=== PATIENT | female | born 1935 | race Caucasian/White ===

== ENCOUNTER 2017-01-13 06:25 | Emergency (ER) | payer MEDICARE, OTHER ==
[~2017-01-13 06:25] MED LIST: ADVAIR 1001 DISK W/D IH; COUMADIN2 MG PO; COUMADIN3 MG; COUMADIN4 MG; DYAZIDE 37.5/251 CAP PO; FOSAMAX70 MG; KLOR-CON 1010 MEQ PO; LEVAQUIN750 MG PO; LIPITOR40 MG PO; MYCELEX10 MG MM; OS-CAL 500+D CA1 TAB PO; PROMETHAZINE/COD5 ML PO; TYLENOL325 MG PO; VERAPAMIL HCL120; VERAPAMIL HCL120 MG; VERAPAMIL HCL120 PO; VYTORIN 10/40 T1 TAB
[2017-01-13] MEDS ORDERED: METOPROLOL SUCC50 M1 PO (06:49)
[2017-01-13] MEDS ORDERED: COUMADIN4 M1 PO (06:51)
[2017-01-13] MEDS ORDERED: COUMADIN3 M1 PO (06:52)
[2017-01-13] MEDS ORDERED: VITAMIN B-6100 M1 PO (06:52)
[2017-01-13] MEDS ORDERED: POTASSIUM CHLO10 ME2 PO (06:53)
[2017-01-13] MEDS ORDERED: BENTYL10 M1 PO (06:53)
[2017-01-13] MEDS ORDERED: LIPITOR40 M1 PO (06:54)
[2017-01-13] MEDS ORDERED: MAXZIDE 37.5 M1 EAC1 PO (06:54)
[2017-01-13] MEDS ORDERED: FLECAINIDE ACE100 M1 PO (06:55)
[2017-01-13] MEDS ORDERED: NORCO 5-325 TA1 EACH PO (08:05)
[2017-03-14] MEDS ORDERED: PREVAGEN PO (15:23)
[2017-03-14] MEDS ORDERED: ALIGN4 M1 PO (15:24)
[2017-03-14] MEDS ORDERED: OS-CAL 500+D31 EAC1 PO (15:24)
[2017-03-14] MEDS ORDERED: TOPROL XL50 M1 PO (15:27)
== END 2017-01-13 09:05 ==
LOC: EDMED 06:25
DX: M54.5 Low back pain (principal); M79.605 Pain in left leg; M13.852 Other specified arthritis, left hip; M13.851 Other specified arthritis, right hip; I10 Essential (primary) hypertension; Z86.11 Personal history of tuberculosis; Z90.710 Acquired absence of both cervix and uterus; Z90.49 Acquired absence of other specified parts of digestive tract; Z79.01 Long term (current) use of anticoagulants; Z79.899 Other long term (current) drug therapy; W19.XXXA Unspecified fall, initial encounter

== ENCOUNTER 2017-01-19 04:33 | Observation (INO) | payer MEDICARE, OTHER ==
[~2017-01-19 04:33] MED LIST changes: +BENTYL10 M1 PO; +COUMADIN3 M1 PO; +COUMADIN4 M1 PO; +FLECAINIDE ACE100 M1 PO; +LIPITOR40 M1 PO; +MAXZIDE 37.5 M1 EAC1 PO; +METOPROLOL SUCC50 M1 PO; +NORCO 5-325 TA1 EACH PO; +POTASSIUM CHLO10 ME2 PO; +VITAMIN B-6100 M1 PO
[2017-01-19 05:21] LABS: BASO % 0.2 % (0-2); EOS % 0.8 % (0-7); EOSINOPHIL ABSOLUTE COUNT 0.1 tho/cmm (0.0-0.7); HCT-HEMATOCRIT 45.2 % (34.0-49.0); HGB-HEMOGLOBIN 15.6 gm/dl (12.0-15.5); IMMATURE GRANULOCYTES ABSOLUTE 0.02 tho/cmm (0-0.03); IMMATURE GRANULOCYTES PERCENT 0.2 % (0-0.3); LYMPH % 13.9 % (20-45); LYMPH ABSOLUTE COUNT 1.5 tho/cmm (0.8-4.5); MCH (MEAN CORPUSCULAR HGB) 31.6 pg (28.0-32.0); MCHC MEAN CORPUSCULAR HGB CONC 34.5 % (32.0-36.0); MCV (MEAN CELL VOLUME) 91.5 fl (82.0-96.0); MEAN PLATELET VOLUME 9.5 cmc (9.4-12.4); MONO % 9.3 % (0-12); NEUTROPHIL ABSOLUTE COUNT 8.4 tho/cmm (1.6-8.0); NEUTROPHIL-AUTOMATED 8.4 tho/cmm (1.6-8.0); NEUTROPHILS % 75.6 % (40-80); PLATELET COUNT 256 tho/cmm (150-450); RED BLOOD COUNT 4.94 mil/cmm (4.00-5.20); WHITE BLOOD COUNT 11.1 tho/cmm (4.0-10.0)
[2017-01-19 05:25] LABS: PROTHROMBIN TIME 23.6 SECONDS (9.0-13.6)
[2017-01-19 05:42] LABS: ANION GAP 15 mmol/L (0-20); BLOOD UREA NITROGEN 32 mg/dl (6-24); CARBON DIOXIDE-VENOUS 22 mmol/L (22-32); CHLORIDE 113 mmol/l (96-110); CREATININE 0.78 mg/dl (0.50-1.10); GLUCOSE 131 mg/dL (70-110); POTASSIUM 3.5 mmol/L (3.7-5.1); SODIUM 146 mmol/L (135-145); eGFR VALUE FOR BLACK 84 mL/Min
[2017-03-14] MEDS ORDERED: PREVAGEN PO (15:23)
[2017-03-14] MEDS ORDERED: ALIGN4 M1 PO (15:24)
[2017-03-14] MEDS ORDERED: OS-CAL 500+D31 EAC1 PO (15:24)
[2017-03-14] MEDS ORDERED: TOPROL XL50 M1 PO (15:27)
== END 2017-01-19 17:30 ==
LOC: EDMED 04:33 → EMR2 07:27 → CAR1 14:15
PROVIDERS: Emergency Medicine; ADMIT Internal Medicine Cardiovascular Disease
DX: I48.0 Paroxysmal atrial fibrillation (principal); E78.5 Hyperlipidemia, unspecified; E87.6 Hypokalemia; I34.0 Nonrheumatic mitral (valve) insufficiency; Z79.899 Other long term (current) drug therapy; Z79.01 Long term (current) use of anticoagulants; Z90.49 Acquired absence of other specified parts of digestive tract; Z98.41 Cataract extraction status, right eye; Z98.42 Cataract extraction status, left eye; Z90.710 Acquired absence of both cervix and uterus; Z98.890 Other specified postprocedural states
CPT/HCPCS: G0378; J7030

== ENCOUNTER 2017-03-18 09:28 | Inpatient (IN) | payer MEDICARE, OTHER ==
[~2017-03-18 09:28] MED LIST changes: +ALIGN4 M1 PO; +OS-CAL 500+D31 EAC1 PO; +PREVAGEN PO; +TOPROL XL50 M1 PO
[2017-03-18 12:02] LABS: BASO % 0.1 % (0-2); EOS % 0.1 % (0-7); HCT-HEMATOCRIT 38.3 % (34.0-49.0); HGB-HEMOGLOBIN 12.7 gm/dl (12.0-15.5); IMMATURE GRANULOCYTES ABSOLUTE 0.04 tho/cmm (0-0.03); IMMATURE GRANULOCYTES PERCENT 0.3 % (0-0.3); LYMPH ABSOLUTE COUNT 0.8 tho/cmm (0.8-4.5); MCH (MEAN CORPUSCULAR HGB) 31.4 pg (28.0-32.0); MCHC MEAN CORPUSCULAR HGB CONC 33.2 % (32.0-36.0); MCV (MEAN CELL VOLUME) 94.8 fl (82.0-96.0); MEAN PLATELET VOLUME 8.8 cmc (9.4-12.4); MONO % 6.3 % (0-12); MONOCYTE ABSOLUTE COUNT 0.8 tho/cmm (0.0-1.2); NEUTROPHIL ABSOLUTE COUNT 11.7 tho/cmm (1.6-8.0); NEUTROPHIL-AUTOMATED 11.7 tho/cmm (1.6-8.0); NEUTROPHILS % 87.2 % (40-80); PLATELET COUNT 346 tho/cmm (150-450); RED BLOOD COUNT 4.04 mil/cmm (4.00-5.20); RED CELL DISTRIBUTION WIDTH 13.1 % (12.4-16.4); WHITE BLOOD COUNT 13.4 tho/cmm (4.0-10.0)
[2017-03-18 12:11] LABS: INR 1.8 INR (0.9-1.1); PROTHROMBIN TIME 20.9 SECONDS (9.0-13.6)
[2017-03-18 12:50] LABS: INR 1.7 INR (0.9-1.1); PROTHROMBIN TIME 20.3 SECONDS (9.0-13.6)
--- NOTE | 2017-03-18 18:40 | NUR ---
VIRTUAL CARE NOTE: INTRODUCED MYSELF AND VN ROLE TO PT. PT IS A DIRECT ADMIT FROM SHORT STAY. STATES SHE HAS A PRINTED MED LIST SHE GAVE TO A NURSE. (I PAGED FLOOR STAFF TO SCAN DOWN TO ME SO I COULD REVIEW IF NEEDED). PT DENIES ANY OTHER QUESTIONS OR CONCERNS AT THIS TIME. SHIFT CHANGE OCCURING AND DAY/NOC STAFF ENTERED ROOM. ENCOURAGED PT TO CALL IF NEEDED. PT V/U.
[2017-03-18 19:08] LABS: INR 1.7 INR (0.9-1.1); PROTHROMBIN TIME 20.4 SECONDS (9.0-13.6)
[2017-03-19 05:12] LABS: INR 1.8 INR (0.9-1.1); PROTHROMBIN TIME 21.3 SECONDS (9.0-13.6)
[2017-03-19 05:15] LABS: BASO % 0.1 % (0-2); EOS % 0.6 % (0-7); EOSINOPHIL ABSOLUTE COUNT 0.1 tho/cmm (0.0-0.7); HCT-HEMATOCRIT 35.7 % (34.0-49.0); HGB-HEMOGLOBIN 11.6 gm/dl (12.0-15.5); IMMATURE GRANULOCYTES ABSOLUTE 0.05 tho/cmm (0-0.03); IMMATURE GRANULOCYTES PERCENT 0.6 % (0-0.3); LYMPH ABSOLUTE COUNT 1.1 tho/cmm (0.8-4.5); MCH (MEAN CORPUSCULAR HGB) 31.4 pg (28.0-32.0); MCHC MEAN CORPUSCULAR HGB CONC 32.5 % (32.0-36.0); MCV (MEAN CELL VOLUME) 96.5 fl (82.0-96.0); MEAN PLATELET VOLUME 8.8 cmc (9.4-12.4); MONOCYTE ABSOLUTE COUNT 0.7 tho/cmm (0.0-1.2); NEUTROPHIL ABSOLUTE COUNT 6.2 tho/cmm (1.6-8.0); NEUTROPHIL-AUTOMATED 6.2 tho/cmm (1.6-8.0); NEUTROPHILS % 75.7 % (40-80); PLATELET COUNT 309 tho/cmm (150-450); RED CELL DISTRIBUTION WIDTH 13.3 % (12.4-16.4); WHITE BLOOD COUNT 8.2 tho/cmm (4.0-10.0)
[2017-03-19 05:17] LABS: ANION GAP 12 mmol/L (0-20); BLOOD UREA NITROGEN 15 mg/dl (6-24); CALCIUM 8.1 mg/dl (8.5-10.5); CARBON DIOXIDE-VENOUS 26 mmol/L (22-32); CHLORIDE 113 mmol/l (96-110); CREATININE 0.56 mg/dl (0.50-1.10); GLUCOSE 83 mg/dL (70-110); POTASSIUM 3.8 mmol/L (3.7-5.1); SODIUM 147 mmol/L (135-145); eGFR VALUE FOR BLACK >90 mL/Min
[2017-03-20 05:10] LABS: INR 1.8 INR (0.9-1.1); PROTHROMBIN TIME 21.6 SECONDS (9.0-13.6)
--- NOTE | 2017-03-20 17:03 | NUR ---
VIRTUAL CARE NOTE: PT RESTING ON BED, STATES DOING MUCH BETTER, AMBULATES IN HALLS WITH MINIMAL ASSISSTANT. PLAN OF CARE AND DISCHARGE PLAN DISCUSSED, ANTICIPATE DC HOME WITH ABSCESS DRAIN, PT THINKS HERSELF AND HER FAMILY WILL ABLE TO DO DRAIN CARES AT HOME. HHC OPTION OFFERED TO PT AND SHE DOES NOT NEED AT THIS TIME. PT DENIES ANY QUESTIONS OR CONCERNS.
--- NOTE | 2017-03-20 22:10 | NUR ---
VIRTUAL CARE NOTED. PT. IN BED. STATES HAS BEEN WALKING AND HER PAIN IS OKAY. DRAIN IS INTACT. DENIES FURTHER NEEDS AT THIS TIME. INSTRUCTED TO CALL OF FURTHER NEEDS. STATES VERBAL AGREEMENT.
[2017-03-21 05:42] LABS: BASO % 0.1 % (0-2); EOS % 1.6 % (0-7); EOSINOPHIL ABSOLUTE COUNT 0.1 tho/cmm (0.0-0.7); HCT-HEMATOCRIT 38.8 % (34.0-49.0); HGB-HEMOGLOBIN 12.8 gm/dl (12.0-15.5); IMMATURE GRANULOCYTES ABSOLUTE 0.06 tho/cmm (0-0.03); IMMATURE GRANULOCYTES PERCENT 0.8 % (0-0.3); LYMPH % 20.7 % (20-45); LYMPH ABSOLUTE COUNT 1.5 tho/cmm (0.8-4.5); MCH (MEAN CORPUSCULAR HGB) 31.3 pg (28.0-32.0); MCV (MEAN CELL VOLUME) 94.9 fl (82.0-96.0); MEAN PLATELET VOLUME 8.8 cmc (9.4-12.4); MONO % 5.9 % (0-12); MONOCYTE ABSOLUTE COUNT 0.4 tho/cmm (0.0-1.2); NEUTROPHIL ABSOLUTE COUNT 5.2 tho/cmm (1.6-8.0); NEUTROPHIL-AUTOMATED 5.2 tho/cmm (1.6-8.0); NEUTROPHILS % 70.9 % (40-80); PLATELET COUNT 342 tho/cmm (150-450); RED BLOOD COUNT 4.09 mil/cmm (4.00-5.20); RED CELL DISTRIBUTION WIDTH 13.1 % (12.4-16.4); WHITE BLOOD COUNT 7.3 tho/cmm (4.0-10.0)
[2017-03-21 05:48] LABS: INR 1.3 INR (0.9-1.1)
[2017-03-21 05:51] LABS: PROTHROMBIN TIME 15.8 SECONDS (9.0-13.6)
--- NOTE | 2017-03-21 09:33 | NUR ---
VIRTUAL CARE NOTE: ROUND WITH PT AT BEDSIDE, HELPING FLOOR NURSE WITH VS AND GIVEN MEDS. DISCHARGE PLAN REVIEWED, PT DENIES CONCERNS.
[2017-03-21] MEDS ORDERED: AUGMENTIN PO (10:18)
== END 2017-03-21 13:05 | DRG 373 ==
LOC: SHSB 09:28 → 5WD 18:00
PROVIDERS: Radiology Diagnostic Radiology; Surgery; ADMIT Hospitalist
PROC: 0W9G30Z Drainage of Peritoneal Cavity with Drainage Device, Percutaneous Approach (ICD-10-PCS; principal; 2017-03-18)
DX: K65.1 Peritoneal abscess (principal); I48.2 Chronic atrial fibrillation; B95.5 Unspecified streptococcus as the cause of diseases classified elsewhere; B96.20 Unspecified Escherichia coli [E. coli] as the cause of diseases classified elsewhere; I10 Essential (primary) hypertension; E78.5 Hyperlipidemia, unspecified; M19.90 Unspecified osteoarthritis, unspecified site; Z79.01 Long term (current) use of anticoagulants; Z79.899 Other long term (current) drug therapy
CPT/HCPCS: C1729; C1769; J1335; J2250; J3010; J7030